=== PATIENT | female | born 1950 | race Caucasian/White ===

== ENCOUNTER → 2016-12-24 | Emergency (ER) | payer MEDICARE ==
[~2016-12-24] VITALS: Ht 152.4 cm; Wt 68.0 kg
[~2016-12-24] MED LIST: ACHD5005 PO; CIPR-225 PO; GLIM4TAB PO; INSU100I16 SQ; LEVO100T7 PO; LEVO750T9 PO; LEVO75TA6 PO; LISI10TA2 PO; MTF500T PO; NITR-65 PO; OMEP20CA12 PO; OXYC-12 PO; PANT40TA3 PO; PHEN-640 PO; PHENAZOPYRIDINE 100 MG (PYRIDIUM) TABLET PO ONE; PRAV40TA PO; PRD10T PO; RANI300T4 PO; RX-NITROFURANTOIN 100 MG (MACROBID) CAP PPK#2 PO STA; [UNRECOGNIZED DRUG - OTHER] PO; [UNRECOGNIZED DRUG - OTHER] PO
--- NOTE | 2016-12-24 04:32 | ED GU-Female ---
General Chief Complaint: -Female Stated Complaint: BLOOD WITH URINE Source: patient, spouse History of Present Illness Time seen by provider: 04:17 Initial Comments PT ARRIVES VIA POV FROM HOME C/O BLOOD IN URINE, LOWER ABDOMINAL PAIN/PRESSURE/CRAMPING, URGENCY, UNABLE TO URINATE SINCE 2300 THIS EVENING NO FEVER NO NAUSEA/VOMITING A COUPLE OF WEEKS AGO, SHE HAD "JUST ONE DROP" OF BLOOD IN HER URINE--DID NOT SEEK CARE AT THAT TIME HAS HAD THIS SAME PROBLEM ONCE BEFORE, ABOUT A YEAR AGO PCP: DR. LEO Allergies and Home Medications Allergies Coded Allergies: aspirin (Unverified Allergy, Mild, ITCHINESS, 09/30/15) Uncoded Allergies: PCN (Allergy, Intermediate, ITCHINESS, 09/30/15) Home Medications Glimepiride 4 Mg Tablet, 8 MG PO DAILY, (Reported) TAKES 2 (4MG) TABLETS Insulin Detemir 100 Unit/1 Ml Insuln.pen, 60 UNIT SQ HS, (Reported) Levothyroxine Sodium 100 Mcg Tablet, 100 MCG PO DAILY, (Reported) Lisinopril 10 Mg Tablet, 10 MG PO DAILY@0900, #30 Prescribed by: RAUL LEO on 04/21/16 0755 Metformin Hcl 500 Mg Tablet, 1,000 EACH PO BID WITH MEALS, (Reported) TAKES 2 (500MG) TABLETS Pantoprazole Sodium 40 Mg Tablet.dr, 40 MG PO DAILY, (Reported) Pravastatin Sodium 40 Mg Tablet, 40 MG PO HS, (Reported) Constitutional: no symptoms reported Respiratory: no symptoms reported Cardiovascular: no symptoms reported Gastrointestinal: see HPI, abdominal pain Genitourinary: see HPI, burning, dysuria, hematuria, pain, urgency Musculoskeletal: no symptoms reported Skin: no symptoms reported Psychiatric/Neurological: No Symptoms Reported Past Hgffzqi-Ygjkzj-Gjtgwu Hx Patient Social History Alcohol Use: Denies Use Recreational Drug Use: No Smoking Status: Never a Smoker Recent Foreign Travel: No Contact w/Someone Who Travel: No Recent Hopitalizations: No Immunizations Up To Date Tetanus Booster (TDap): Unknown Date of Influenza Vaccine: Mar 23, 2016 Seasonal Allergies Seasonal Allergies: No Surgeries HX Surgeries: Yes (VERICOSE VEINS, LEFT ROTATOR CUFF REPAIR, CATARACTS) Surgeries: Eye Surgery, Orthopedic, Vascular Surgery Respiratory Hx Respiratory Disorders: No Cardiovascular Hx Cardiac Disorders: No (VARICOSE VEINS) Neurological Hx Neurological Disorders: No Reproductive System Hx Reproductive Disorders: No Genitourinary Hx Genitourinary Disorders: Yes Genitourinary Disorders: Bladder Infection Gastrointestinal Hx Gastrointestinal Disorders: No Musculoskeletal Hx Musculoskeletal Disorders: No Endocrine Hx Endocrine Disorders: Yes Endocrine Disorders: Diabetes, Insulin dep HEENT HX ENT Disorders: No Cancer Hx Cancer: No Psychosocial Hx Psychiatric Problems: No Integumentary HX Skin/Integumentary Disorder: No Blood Transfusions Hx Blood Disorders: No Family Medical History Significant Family History: No Pertinent Family Hx Family Medial History: Patient reports no known family medical history. 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, no motor/sensory deficits, alert, oriented x 3 Skin: normal color, warm/dry Progress/Results/Core Measures Results/Orders Lab Results Laboratory Tests Test 12/24/16 04:10 Range/Units Urine Color RED H Urine Clarity BLOODY H Urine pH 6 5-9 Urine Specific [place] 1.015 L 1.016-1.022 Urine Protein 4+ NEGATIVE Urine Glucose (UA) NEGATIVE NEGATIVE Urine Ketones 1+ H NEGATIVE Urine Nitrite NEGATIVE NEGATIVE Urine Bilirubin NEGATIVE NEGATIVE Urine Urobilinogen NORMAL NORMAL MG/DL Urine Leukocyte Esterase 3+ H NEGATIVE Urine RBC (Auto) 4+ H NEGATIVE Urine RBC TNTC H /HPF Urine WBC TNTC H /HPF Urine Crystals NONE /LPF Urine Bacteria NEGATIVE /HPF Urine Casts NONE /LPF Urine Mucus NEGATIVE /LPF Urine Culture Indicated YES My Orders Orders - CRISTIAN FISCHER DO Ua Culture If Indicated (12/24/16 04:17) Urine Culture (12/24/16 04:27) Phenazopyridine Tablet (Pyridium Tablet) (12/24/16 04:30) Bladder Scan (12/24/16 04:32) Medications Given in ED Current Medications Medications Dose Ordered Sig/Nohelia Route Start Time Stop Time Status Last Admin Dose Admin Phenazopyridine HCl 200 mg ONCE ONCE PO 12/24/16 04:30 12/24/16 04:32 DC 12/24/16 04:54 200 MG Vital Signs/I&O Vital Sign - Last 12Hours 12/24/16 04:30 Temp 99.1 Pulse 100 Resp 20 B/P (MAP) 166/83 Pulse Ox 98 O2 Delivery Room Air Progress Note : Progress Note PT INITIALLY UNABLE TO VOID, IN/OUT CATH DONE--PT UNCOOPERATIVE, AND IT WAS DC' D BEFORE BLADDER WAS EMPTIED. GROSSLY BLOODY URINE PT GIVEN PYRIDIUM AND THEN WAS ABLE TO VOID ON HER OWN. POST VOID BLADDER SCAN SHOWS COMPLETE EMPTYING OF BLADDER. Departure Impression Impression: Primary Impression: Urinary tract infection Additional Impression: Acute hemorrhagic cystitis Disposition: HOME, SELF-CARE Condition: Improved Departure-Patient Inst. Referrals: RAUL LEO DO (PCP/Family) Primary Care Physician Patient Instructions: Blood in the Urine (Hematuria), Adult (DC), Urinary Tract Infection, Adult (DC) Add. Discharge Instructions: LOTS OF CLEAR LIQUIDS--NO COFFEE, POP OR TEA TYLENOL NEEDED FOR PAIN FOLLOW UP WITH DR. LEO IN 3-4 DAYS FOR FURTHER CARE All discharge instructions reviewed with patient and/or family. Voiced understanding. Scripts Phenazopyridine HCl (Pyridium) 200 Mg Tablet 1 TAB PO TID for BLADDER DISCOMFORT, #15 TAB Prov: CRISTIAN FISCHER DO 12/24/16 Nitrofurantoin Monohyd/M-Cryst (Macrobid 100 mg Capsule) 100 Mg Capsule 100 MG PO BID, #20 CAP Prov: CRISTIAN FISCHER DO 12/24/16 CRISTIAN FISCHER DO Dec 24, 2016 04:32
[2016-12-24 04:41] LABS: BILIRUBIN,URINE NEGATIVE (NEGATIVE); KETONES,URINE 1+ (NEGATIVE); LEUKOCYTE ESTERASE ,URINE 3+ (NEGATIVE); NITRITE,URINE NEGATIVE (NEGATIVE); PH,URINE 6 (5-9); PROTEIN,URINE 4+ (NEGATIVE); UROBILINOGEN,URINE NORMAL (NORMAL)
[2016-12-24 04:55] LABS: WBC,URINE TNTC /HPF
[2016-12-24 05:09] VITALS: BP 166/83
== END ==
LOC: EDUNIT# 04:06 → ER 04:09
DX: N39.0 Urinary tract infection, site not specified (principal); N30.90 Cystitis, unspecified without hematuria; E11.9 Type 2 diabetes mellitus without complications; Z79.84 Long term (current) use of oral hypoglycemic drugs; Z79.4 Long term (current) use of insulin
CPT/HCPCS: 51702; 81000; 87088; 87186

== ENCOUNTER → 2017-02-19 | Outpatient (CLI) | payer MEDICARE ==
[~2017-02-19] MED LIST changes: -PHENAZOPYRIDINE 100 MG (PYRIDIUM) TABLET PO ONE; -RX-NITROFURANTOIN 100 MG (MACROBID) CAP PPK#2 PO STA
== END ==
LOC: LAB 12:16
PROVIDERS: ATTEND Family Medicine
DX: N39.0 Urinary tract infection, site not specified (principal)
CPT/HCPCS: 87088

== ENCOUNTER 2017-06-29 23:20 | Emergency (ER) | payer MEDICARE ==
[~2017-06-29] VITALS: Ht 152.4 cm; Wt 68.2 kg
--- OUTSIDE RECORDS SUMMARY | 2017-06-29 23:27 | XMS REPORT | Continuity of Care Document ---
Author Author [facility] Organization [facility] Address Unknown Phone Unavailable Allergies Active Description Code Type Severity Reaction Onset Reported/Identified Relationship to Patient Clinical Status Yes NUTS NUTS Mild ITCHINESS 08/08/2013 Yes PCN PCN Mild ITCHINESS 08/08/2013 Yes PCN PCN Moderate ITCHINESS 09/30/2015 Yes aspirin [id number] Drug Allergy Mild ITCHINESS 09/30/2015 Medications There is no data. Problems Date Dx Coded Attending Type Code Diagnosis Diagnosed By 08/08/2013 AUBREY ALEMAN MD Ot 813.42 FX DISTAL RADIUS NEC-CL 08/08/2013 AUBREY ALEMAN MD Ot 959.4 HAND INJURY NOS 08/08/2013 AUBREY ALEMAN MD Ot E000.8 OTHER EXTERNAL CAUSE STATUS 08/08/2013 AUBREY ALEMAN MD Ot E849.[address] NEC 08/08/2013 AUBREY ALEMAN MD Ot E885.9 FALL FROM SLIPPING, TRIPPING, OR STUMBLI 12/04/2013 JOVAN ELLIS MD Ot 719.58 JT STIFFNESS NEC-OTH JT 12/04/2013 JOVAN ELLIS MD Ot V54.89 OTHER ORTHOPEDIC AFTERCARE 12/04/2013 JOVAN ELLIS MD Ot V57.21 ENCOUNTER FOR OCCUPATIONAL THERAPY 09/30/2015 CHERIE RAO MD Ot K21.9 GASTRO-ESOPHAGEAL REFLUX DISEASE WITHOUT 09/30/2015 CHERIE RAO MD Ot K59.00 CONSTIPATION, UNSPECIFIED 09/30/2015 CHERIE RAO MD Ot Z01.818 ENCOUNTER FOR OTHER PREPROCEDURAL EXAMIN 10/01/2015 CHERIE RAO MD Ot K21.9 10/01/2015 CHERIE RAO MD Ot K59.00 10/01/2015 CHERIE RAO MD, Ot Z01.818 10/01/2015 CHERIE RAO MD Ot K21.9 10/01/2015 JALEN OCHOA, CHERIE Marion Ot K59.00 10/01/2015 JALEN OCHOA, CHERIE Marion Ot Z01.818 10/04/2015 JALEN OCHOA, CHERIE Marion Ot E11.9 TYPE 2 DIABETES MELLITUS WITHOUT COMPLIC 10/04/2015 JALEN OCHOA, CHERIE Doni Ot K26.9 DUODENAL ULCER, UNSP ACUTE OR CHRONIC 10/04/2015 JALEN OCHOA, CHERIE Marion Ot K44.9 DIAPHRAGMATIC HERNIA WITHOUT OBSTRUCTION 10/04/2015 JALEN OCHOA, CHERIE M Ot K57.90 DVRTCLOS OF INTEST, PART UNSP, W/O PERF 10/14/2015 JALEN OCHOA, CHERIE Marion Ot E11.9 10/14/2015 JALEN OCHOA, CHERIE M Ot K26.9 10/14/2015 JALEN OCHOA, CHERIE Marion Ot K44.9 10/14/2015 JALEN OCHOA, CHERIE M Ot K57.90 12/02/2015 Ot 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 12/02/2015 Ot E000.8 OTHER EXTERNAL CAUSE STATUS 12/02/2015 Ot E888.9 FALL NOS 12/02/2015 RAUL LEO DO Ot 813.42 FX DISTAL RADIUS NEC-CL 12/02/2015 FELIPA ENGLISH RAUL Israel Ot E000.8 OTHER EXTERNAL CAUSE STATUS 12/02/2015 RAUL LEO DO Ot E849.0 ACCIDENT IN HOME 12/02/2015 RAUL LEO DO Ot E885.9 FALL FROM SLIPPING, TRIPPING, OR STUMBLI 12/02/2015 SLOAN SILVA APRN Ot K76.0 FATTY (CHANGE OF) LIVER, NOT ELSEWHERE C 12/02/2015 SLOAN SILVA APRN Ot N20.0 CALCULUS OF KIDNEY 12/02/2015 SLOAN SILVA APRN Ot R31.0 GROSS HEMATURIA 12/03/2015 SLOAN SILVA APRN Ot K76.0 FATTY (CHANGE OF) LIVER, NOT ELSEWHERE C 12/03/2015 SLOAN SILVA APRN Ot N20.0 CALCULUS OF KIDNEY 12/03/2015 SLOAN SILVA APRN Ot R31.0 GROSS HEMATURIA 04/21/2016 CHUCKIEROMEORAUL Ot E11.65 TYPE 2 DIABETES MELLITUS WITH HYPERGLYCE 04/21/2016 FELIPA ENGLISH, RAUL Israel Ot E87.1 HYPO-OSMOLALITY AND HYPONATREMIA 04/21/2016 FELIPA ENGLISH, RAUL Israel Ot I10 ESSENTIAL (PRIMARY) HYPERTENSION 04/21/2016 FELIPA ENGLISH, RAUL Israel Ot N28.9 DISORDER OF KIDNEY AND URETER, UNSPECIFI 04/21/2016 RAUL LEO DO Ot R45.89 OTHER SYMPTOMS AND SIGNS INVOLVING EMOTI 05/22/2016 Ot 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 05/22/2016 Ot E000.8 OTHER EXTERNAL CAUSE STATUS 05/22/2016 Ot E888.9 FALL NOS 05/22/2016 FELIPA ENGLISH, RAUL Israel Ot 813.42 FX DISTAL RADIUS NEC-CL 05/22/2016 FELIPA ENGLISH, RAUL Israel Ot E000.8 OTHER EXTERNAL CAUSE STATUS 05/22/2016 FELIPA ENGLISH, RAUL Israel Ot E849.0 ACCIDENT IN HOME 05/22/2016 RAUL LEO DO Ot E885.9 FALL FROM SLIPPING, TRIPPING, OR STUMBLI 05/24/2016 FELIPA ENGLISH, RAUL Israel Ot R22.2 LOCALIZED SWELLING, MASS AND LUMP, TRUNK 05/24/2016 FELIPA ENGLISH, RAUL Israel Ot R22.2 LOCALIZED SWELLING, MASS AND LUMP, TRUNK 06/13/2016 FELIPA ENGLISH, RAUL Israel Ot R22.2 LOCALIZED SWELLING, MASS AND LUMP, TRUNK 12/24/2016 AALIYAH DO CRISTIAN K Ot E11.9 TYPE 2 DIABETES MELLITUS WITHOUT COMPLIC 12/24/2016 AALIYAH DO CRISTIAN K Ot N30.90 CYSTITIS, UNSPECIFIED WITHOUT HEMATURIA 12/24/2016 AALIYAH DO CRISTIAN K Ot N39.0 URINARY TRACT INFECTION, SITE NOT SPECIF 12/24/2016 AALIYAH DO CRISTIAN K Ot R35.0 FREQUENCY OF MICTURITION 12/24/2016 AALIYAH DO CRISTIAN K Ot Z79.4 MANAGER SERVICING (CURRENT) USE OF INSULIN 12/24/2016 AALIYAH DO CRISTIAN K Ot Z79.84 PENITENTIARY (CURRENT) USE OF ORAL HYPOGLYC 03/14/2017 FELIPA ENGLISHRAUL Ot N39.0 URINARY TRACT INFECTION, SITE NOT SPECIF Procedures There is no data. Results Test Result Range Complete blood count (CBC) with automated white blood cell (WBC) differential - 04/19/16 17:02 Blood leukocytes automated count (number/volume) 6.1 10*3/uL 4.3-11.0 Blood erythrocytes automated count (number/volume) 4.32 10*6/uL 4.35-5.85 Venous blood hemoglobin measurement (mass/volume) 12.6 g/dL 11.5-16.0 Blood hematocrit (volume fraction) 36 % 35-52 Automated erythrocyte mean corpuscular volume 84 [foz_us] 80-99 Automated erythrocyte mean corpuscular hemoglobin (mass per erythrocyte) 29 pg 25-34 Automated erythrocyte mean corpuscular hemoglobin concentration measurement ( mass/volume) 35 g/dL 32-36 Automated erythrocyte distribution width ratio 12.6 % 10.0-14.5 Automated blood platelet count (count/volume) 254 10*3/uL 130-400 Automated blood platelet mean volume measurement 11.1 [foz_us] 7.4-10.4 Automated blood neutrophils/100 leukocytes 53 % 42-75 Automated blood lymphocytes/100 leukocytes 37 % 12-44 Blood monocytes/100 leukocytes 8 % 0-12 Automated blood eosinophils/100 leukocytes 2 % 0-10 Automated blood basophils/100 leukocytes 0 % 0-10 Blood neutrophils automated count (number/volume) 3.2 10*3 1.8-7.8 Blood lymphocytes automated count (number/volume) 2.2 10*3 1.0-4.0 Blood monocytes automated count (number/volume) 0.5 10*3 0.0-1.0 Automated eosinophil count 0.1 10*3/uL 0.0-0.3 Automated blood basophil count (count/volume) 0.0 10*3/uL 0.0-0.1 Comprehensive metabolic panel - 04/19/16 17:02 Serum or plasma sodium measurement (moles/volume) 130 mmol/L 135-145 Serum or plasma potassium measurement (moles/volume) 4.9 mmol/L 3.6-5.0 Serum or plasma chloride measurement (moles/volume) 99 mmol/L 98-107 Carbon dioxide 19 mmol/L 21-32 Serum or plasma anion gap determination (moles/volume) 12 mmol/L 5-14 Serum or plasma urea nitrogen measurement (mass/volume) 28 mg/dL 7-18 Serum or plasma creatinine measurement (mass/volume) 1.37 mg/dL 0.60-1.30 Serum or plasma urea nitrogen/creatinine mass ratio 20 NRG Serum or plasma creatinine measurement with calculation of estimated glomerular filtration rate 39 NRG Serum or plasma glucose measurement (mass/volume) 566 mg/dL 70-105 Serum or plasma calcium measurement (mass/volume) 9.2 mg/dL 8.5-10.1 Serum or plasma total bilirubin measurement (mass/volume) 0.3 mg/dL 0.1-1.0 Serum or plasma alkaline phosphatase measurement (enzymatic activity/volume) 155 U/L 40-136 Serum or plasma aspartate aminotransferase measurement (enzymatic activity/ volume) 23 U/L 5-34 Serum or plasma alanine aminotransferase measurement (enzymatic activity/volume ) 35 U/L 0-55 Serum or plasma protein measurement (mass/volume) 7.0 g/dL 6.4-8.2 Serum or plasma albumin measurement (mass/volume) 4.1 g/dL 3.2-4.5 Serum or plasma salicylates measurement (mass/volume) - 04/19/16 17:02 Serum or plasma salicylates measurement (mass/volume) < mg/dL 5.0-20.0 Serum or plasma acetaminophen measurement (mass/volume) - 04/19/16 17:02 Serum or plasma acetaminophen measurement (mass/volume) < ug/mL 10-30 Serum or plasma ethanol measurement (mass/volume) - 04/19/16 17:02 Serum or plasma ethanol measurement (mass/volume) < mg/dL <10 Serum or plasma thyrotropin measurement by detection limit <=0.05 miu/l (units/ volume) - 04/19/16 17:02 Serum or plasma thyrotropin measurement by detection limit <=0.05 miu/l (units/ volume) 1.80 u[iU]/mL 0.35-4.94 Magnesium - 04/19/16 17:02 Magnesium 2.1 mg/dL 1.8-2.4 Serum or plasma troponin i.cardiac measurement (mass/volume) - 04/19/16 17:02 Serum or plasma troponin i.cardiac measurement (mass/volume) < ng/ mL <0.30 Fibrin D-dimer FEU measurement in platelet poor plasma (mass/volume) - 17:02 Fibrin D-dimer FEU measurement in platelet poor plasma (mass/volume) < ug/mL 0.00-0.49 Complete urinalysis with reflex to culture - 04/19/16 17:40 Urine color determination YELLOW NRG Urine clarity determination CLEAR NRG Urine pH measurement by test strip 6.5 5-9 Specific gravity of urine by test strip 1.005 1.016- 1.022 Urine protein assay by test strip, semi-quantitative 1+ NEGATIVE Urine glucose detection by automated test strip 4+ NEGATIVE Erythrocytes detection in urine sediment by light microscopy NEGATIVE NEGATIVE Urine ketones detection by automated test strip NEGATIVE NEGATIVE Urine nitrite detection by test strip NEGATIVE NEGATIVE Urine total bilirubin detection by test strip NEGATIVE NEGATIVE Urine urobilinogen measurement by automated test strip (mass/volume) NORMAL NORMAL Urine leukocyte esterase detection by dipstick NEGATIVE NEGATIVE Automated urine sediment erythrocyte count by microscopy (number/high power field) RARE NRG Automated urine sediment leukocyte count by microscopy (number/high power field ) NONE NRG Bacteria detection in urine sediment by light microscopy NONE NRG Squamous epithelial cells detection in urine sediment by light microscopy 0-2 NRG Crystals detection in urine sediment by light microscopy NONE NRG Casts detection in urine sediment by light microscopy NONE NRG Mucus detection in urine sediment by light microscopy NONE NRG Complete urinalysis with reflex to culture NO NRG Urine drug screening test - 04/19/16 17:40 Urine phencyclidine detection by screening method NEGATIVE NEGATIVE Urine benzodiazepines detection by screening method NEGATIVE NEGATIVE Urine cocaine detection NEGATIVE NEGATIVE Urine amphetamines detection by screening method NEGATIVE NEGATIVE Urine methamphetamine detection by screening method NEGATIVE NEGATIVE Urine cannabinoids detection by screening method NEGATIVE NEGATIVE Urine opiates detection by screening method NEGATIVE NEGATIVE Urine barbiturates detection NEGATIVE NEGATIVE Screening urine tricyclic antidepressants detection NEGATIVE NEGATIVE Urine methadone detection by screening method NEGATIVE NEGATIVE Urine oxycodone detection NEGATIVE NEGATIVE Urine propoxyphene detection NEGATIVE NEGATIVE Urine buprenophrine screen NEGATIVE NEGATIVE Capillary blood glucose measurement by glucometer (mass/volume) - 04/19/16 18: 44 Capillary blood glucose measurement by glucometer (mass/volume) 359 mg/dL 70-110 Capillary blood glucose measurement by glucometer (mass/volume) - 04/19/16 21: 26 Capillary blood glucose measurement by glucometer (mass/volume) 258 mg/dL 70-110 Complete blood count (CBC) with automated white blood cell (WBC) differential - 04/20/16 05:25 Blood leukocytes automated count (number/volume) 6.2 10*3/uL 4.3-11.0 Blood erythrocytes automated count (number/volume) 4.12 10*6/uL 4.35-5.85 Venous blood hemoglobin measurement (mass/volume) 12.0 g/dL 11.5-16.0 Blood hematocrit (volume fraction) 35 % 35-52 Automated erythrocyte mean corpuscular volume 84 [foz_us] 80-99 Automated erythrocyte mean corpuscular hemoglobin (mass per erythrocyte) 29 pg 25-34 Automated erythrocyte mean corpuscular hemoglobin concentration measurement ( mass/volume) 35 g/dL 32-36 Automated erythrocyte distribution width ratio 12.9 % 10.0-14.5 Automated blood platelet count (count/volume) 222 10*3/uL 130-400 Automated blood platelet mean volume measurement 10.7 [foz_us] 7.4-10.4 Automated blood neutrophils/100 leukocytes 45 % 42-75 Automated blood lymphocytes/100 leukocytes 44 % 12-44 Blood monocytes/100 leukocytes 9 % 0-12 Automated blood eosinophils/100 leukocytes 2 % 0-10 Automated blood basophils/100 leukocytes 1 % 0-10 Blood neutrophils automated count (number/volume) 2.8 10*3 1.8-7.8 Blood lymphocytes automated count (number/volume) 2.7 10*3 1.0-4.0 Blood monocytes automated count (number/volume) 0.6 10*3 0.0-1.0 Automated eosinophil count 0.1 10*3/uL 0.0-0.3 Automated blood basophil count (count/volume) 0.0 10*3/uL 0.0-0.1 Comprehensive metabolic panel - 04/20/16 05:47 Serum or plasma sodium measurement (moles/volume) 137 mmol/L 135-145 Serum or plasma potassium measurement (moles/volume) 3.9 mmol/L 3.6-5.0 Serum or plasma chloride measurement (moles/volume) 106 mmol/L 98-107 Carbon dioxide 22 mmol/L 21-32 Serum or plasma anion gap determination (moles/volume) 9 mmol/L 5-14 Serum or plasma urea nitrogen measurement (mass/volume) 23 mg/dL 7-18 Serum or plasma creatinine measurement (mass/volume) 1.10 mg/dL 0.60-1.30 Serum or plasma urea nitrogen/creatinine mass ratio 21 NRG Serum or plasma creatinine measurement with calculation of estimated glomerular filtration rate 50 NRG Serum or plasma glucose measurement (mass/volume) 311 mg/dL 70-105 Serum or plasma calcium measurement (mass/volume) 8.9 mg/dL 8.5-10.1 Serum or plasma total bilirubin measurement (mass/volume) 0.3 mg/dL 0.1-1.0 Serum or plasma alkaline phosphatase measurement (enzymatic activity/volume) 126 U/L 40-136 Serum or plasma aspartate aminotransferase measurement (enzymatic activity/ volume) 24 U/L 5-34 Serum or plasma alanine aminotransferase measurement (enzymatic activity/volume ) 33 U/L 0-55 Serum or plasma protein measurement (mass/volume) 6.5 g/dL 6.4-8.2 Serum or plasma albumin measurement (mass/volume) 3.9 g/dL 3.2-4.5 Capillary blood glucose measurement by glucometer (mass/volume) - 04/20/16 10: 27 Capillary blood glucose measurement by glucometer (mass/volume) 278 mg/dL 70-110 Capillary blood glucose measurement by glucometer (mass/volume) - 04/20/16 16: 10 Capillary blood glucose measurement by glucometer (mass/volume) 312 mg/dL 70-110 Capillary blood glucose measurement by glucometer (mass/volume) - 04/20/16 20: 25 Capillary blood glucose measurement by glucometer (mass/volume) 392 mg/dL 70-110 Automated blood complete blood count (hemogram) panel - 04/21/16 05:45 Blood leukocytes automated count (number/volume) 6.1 10*3/uL 4.3-11.0 Blood erythrocytes automated count (number/volume) 3.95 10*6/uL 4.35-5.85 Venous blood hemoglobin measurement (mass/volume) 11.6 g/dL 11.5-16.0 Blood hematocrit (volume fraction) 33 % 35-52 Automated erythrocyte mean corpuscular volume 84 [foz_us] 80-99 Automated erythrocyte mean corpuscular hemoglobin (mass per erythrocyte) 29 pg 25-34 Automated erythrocyte mean corpuscular hemoglobin concentration measurement ( mass/volume) 35 g/dL 32-36 Automated erythrocyte distribution width ratio 12.7 % 10.0-14.5 Automated blood platelet count (count/volume) 252 10*3/uL 130-400 Automated blood platelet mean volume measurement 10.9 [foz_us] 7.4-10.4 Comprehensive metabolic panel - 04/21/16 05:45 Serum or plasma sodium measurement (moles/volume) 137 mmol/L 135-145 Serum or plasma potassium measurement (moles/volume) 3.9 mmol/L 3.6-5.0 Serum or plasma chloride measurement (moles/volume) 106 mmol/L 98-107 Carbon dioxide 22 mmol/L 21-32 Serum or plasma anion gap determination (moles/volume) 9 mmol/L 5-14 Serum or plasma urea nitrogen measurement (mass/volume) 21 mg/dL 7-18 Serum or plasma creatinine measurement (mass/volume) 1.14 mg/dL 0.60-1.30 Serum or plasma urea nitrogen/creatinine mass ratio 18 NRG Serum or plasma creatinine measurement with calculation of estimated glomerular filtration rate 48 NRG Serum or plasma glucose measurement (mass/volume) 271 mg/dL 70-105 Serum or plasma calcium measurement (mass/volume) 9.3 mg/dL 8.5-10.1 Serum or plasma total bilirubin measurement (mass/volume) 0.2 mg/dL 0.1-1.0 Serum or plasma alkaline phosphatase measurement (enzymatic activity/volume) 124 U/L 40-136 Serum or plasma aspartate aminotransferase measurement (enzymatic activity/ volume) 26 U/L 5-34 Serum or plasma alanine aminotransferase measurement (enzymatic activity/volume ) 33 U/L 0-55 Serum or plasma protein measurement (mass/volume) 6.4 g/dL 6.4-8.2 Serum or plasma albumin measurement (mass/volume) 3.7 g/dL 3.2-4.5 Hemoglobin A1c - 04/21/16 05:45 Hemoglobin A1c 11.5 % 4.5-6.2 Capillary blood glucose measurement by glucometer (mass/volume) - 04/21/16 11: 40 Capillary blood glucose measurement by glucometer (mass/volume) 374 mg/dL 70-110 Complete urinalysis with reflex to culture - 12/24/16 04:10 Urine color determination RED NRG Urine clarity determination BLOODY NRG Urine pH measurement by test strip 6 5-9 Specific gravity of urine by test strip 1.015 1.016- 1.022 Urine protein assay by test strip, semi-quantitative 4+ NEGATIVE Urine glucose detection by automated test strip NEGATIVE NEGATIVE Erythrocytes detection in urine sediment by light microscopy 4+ NEGATIVE Urine ketones detection by automated test strip 1+ NEGATIVE Urine nitrite detection by test strip NEGATIVE NEGATIVE Urine total bilirubin detection by test strip NEGATIVE NEGATIVE Urine urobilinogen measurement by automated test strip (mass/volume) NORMAL NORMAL Urine leukocyte esterase detection by dipstick 3+ NEGATIVE Automated urine sediment erythrocyte count by microscopy (number/high power field) TNTC NRG Automated urine sediment leukocyte count by microscopy (number/high power field ) TNTC NRG Bacteria detection in urine sediment by light microscopy NEGATIVE NRG Crystals detection in urine sediment by light microscopy NONE NRG Casts detection in urine sediment by light microscopy NONE NRG Mucus detection in urine sediment by light microscopy NEGATIVE NRG Complete urinalysis with reflex to culture YES NRG Bacterial urine culture - 12/24/16 04:10 Bacterial urine culture [id number] NRG COLONY COUNT >100,000/ML NRG FTX;REPORTABLE SENSITIVITY REPORTED 12/25 15:30 NR Bacterial susceptibility panel - 12/24/16 04:10 Gentamicin susceptibility test by minimum inhibitory concentration < = NRG Trimethoprim/sulfamethoxazole susceptibility test by minimum inhibitoryconcentration <= NRG Ampicillin susceptibility test by minimum inhibitory concentration > = NRG Tobramycin susceptibility test by minimum inhibitory concentration < = NRG Cefazolin susceptibility test by minimum inhibitory concentration < = NRG Ceftriaxone susceptibility test by minimum inhibitory concentration <= NRG Ampicillin/sulbactam susceptibility test by minimum inhibitory concentration 16 NRG Piperacillin/tazobactam susceptibility test by minimum inhibitory concentration <= NRG Ciprofloxacin susceptibility test by minimum inhibitory concentration <= NRG Meropenem susceptibility test by minimum inhibitory concentration < = NRG Nitrofurantoin susceptibility test by minimum inhibitory concentration <= NRG Aztreonam susceptibility test by minimum inhibitory concentration < = NRG Extended spectrum beta lactamase (ESBL) producing bacteria susceptibility test by minimum inhibitory concentration - NR Bacterial urine culture - 02/19/17 12:45 URINE CULTURE RESULTS MORE THAN 3 ISOLATES NRG Encounters ACCT No. Visit Date/Time Discharge Status Pt. Type Provider Facility Loc./Unit Complaint [id number] 02/19/2017 12:16:00 02/19/2017 23:59:59 CLS Outpatient RAUL LEO DO [facility] LAB URINE CULTURE [id number] 12/24/2016 04:09:00 12/24/2016 05:09:00 DIS Emergency CRISTIAN FISCHER DO [facility] ER BLOOD WITH URINE [id number] 05/22/2016 13:23:00 05/22/2016 23:59:59 CLS Outpatient RAUL LEO DO [facility] RAD LOCALIZED SWELLING, MASS AND LUMP,TRUNK [id number] 04/19/2016 21:00:00 04/21/2016 13:40:00 DIS Inpatient RAUL LEO DO [facility] 4TH HYPERGLYCEMIA, HYPERTENSION,HYPONATREMIA,WEAKNESS,S [id number] 12/02/2015 10:13:00 12/02/2015 13:10:00 DIS Emergency SLOAN SILVA APRN [facility] ER VAG BLEEDING [id number] 10/04/2015 09:19:00 10/04/2015 12:25:00 DIS Outpatient CHERIE RAO MD [facility] CHANGE IN BOWEL HABITS; GERD [id number] 09/30/2015 06:09:00 09/30/2015 13:44:00 DIS Outpatient CHERIE RAO MD [facility] PREOP CHANGE IN BOWEL HABITS; GERD [id number] 11/19/2013 13:37:00 12/04/2013 11:05:00 DIS Outpatient JOVAN ELLIS MD [facility] REHAB S/P LEFT WRIST FX [id number] 09/23/2013 14:01:00 09/23/2013 23:59:59 CLS Outpatient [id number] 09/02/2013 14:02:00 09/02/2013 23:59:59 CLS Outpatient [id number] 08/08/2013 14:45:00 08/08/2013 23:59:59 CLS Outpatient RAUL LEO DO [facility] RAD FELL ON ICE ON LEFT WRIST [id number] 08/08/2013 15:28:00 08/08/2013 17:16:00 DIS Emergency AUBREY ALEMAN MD [facility] ER L HAND INJ [id number] 10/03/2011 15:01:00 Document Registration
[2017-06-30] MEDS ORDERED: HYOSCYAMINE 0.125 MG (LEVSIN) TAB SL ONE
[2017-06-30 00:16] LABS: BASOPHILS % (AUTO) 0 % (0-10); EOSINOPHILS # (AUTO) 0.1 10^3/uL (0.0-0.3); EOSINOPHILS % (AUTO) 2 % (0-10); LYMPHOCYTES # (AUTO) 3.2 X 10^3 (1.0-4.0); LYMPHOCYTES % (AUTO) 38 % (12-44); MEAN CORPUSCULAR HEMOGLOBIN 30 PG (25-34); MEAN CORPUSCULAR HGB CONC 34 G/DL (32-36); MEAN CORPUSCULAR VOLUME 86 FL (80-99); MEAN PLATELET VOLUME 10.3 FL (7.4-10.4); MONOCYTES # (AUTO) 0.6 X 10^3 (0.0-1.0); MONOCYTES % (AUTO) 7 % (0-12); NEUTROPHILS # (AUTO) 4.6 X 10^3 (1.8-7.8); NEUTROPHILS % (AUTO) 53 % (42-75); PLATELET COUNT 322 10^3/uL (130-400); WHITE BLOOD COUNT 8.6 10^3/uL (4.3-11.0)
[2017-06-30 00:36] LABS: BILIRUBIN,URINE NEGATIVE (NEGATIVE); KETONES,URINE 1+ (NEGATIVE); LEUKOCYTE ESTERASE ,URINE 2+ (NEGATIVE); NITRITE,URINE NEGATIVE (NEGATIVE); PH,URINE 7 (5-9); PROTEIN,URINE 4+ (NEGATIVE); UROBILINOGEN,URINE NORMAL (NORMAL)
[2017-06-30 00:37] LABS: ALBUMIN 4.2 GM/DL (3.2-4.5); BILIRUBIN,TOTAL 0.2 MG/DL (0.1-1.0); CALCIUM 9.3 MG/DL (8.5-10.1); CREATININE SERUM 1.33 MG/DL (0.60-1.30); POTASSIUM 4.1 MMOL/L (3.6-5.0); TOTAL PROTEIN 7.8 GM/DL (6.4-8.2)
[2017-06-30 00:45] LABS: SQUAMOUS EPITHELIAL CELL,UR RARE /HPF
[2017-06-30] MEDS ORDERED: PHENAZOPYRIDINE 100 MG (PYRIDIUM) TABLET PO ONE (01:00)
[2017-06-30] MEDS ORDERED: CIPROFLOXACIN 500 MG (CIPRO) TABLET PO SCH (01:00)
[2017-06-30] MEDS ORDERED: PHEN-640 PO (01:02)
[2017-06-30] MEDS ORDERED: CIPR-225 PO (01:02)
--- NOTE | 2017-06-30 01:02 | ED GU-Female ---
General Chief Complaint: -Female Stated Complaint: VAG BLEEDING Nursing Triage Note: PAINFUL URINATION WITH INCREASED FREQUENCY, POSSIBLE VAGINAL BLEEDING Nursing Sepsis Screen: No Definite Risk Source: patient, family, old records Exam Limitations: no limitations History of Present Illness Time seen by provider: 23:25 Initial Comments This 66-year-old woman presents to the emergency room with complaints of vaginal or urethral bleeding that started about 2 hours prior to arrival. She has significant pain with urination which she describes as a clawing or scratching pain. She also has urinary frequency. She recently completed a round of azithromycin and Phenergan with codeine as prescribed by Dr. Leo on Sunday for respiratory symptoms. She is a diabetic but denies any other significant health problems. Patient also has cramping suprapubic pain. Her who is hypervigilant also presents tissue with blood on it as an example of the bleeding noted. Review of her chart notes a CT scan performed in November 2015 showing left nephrolithiasis. Patient is rather uncomfortable on assessment. Patient describes the pain is coming from the vaginal area. She is uncertain if she has bleeding from the urethra or the vagina. She denies any sexual activity for 25 years. Allergies and Home Medications Allergies Coded Allergies: aspirin (Unverified Allergy, Mild, ITCHINESS, 09/30/15) Uncoded Allergies: PCN (Allergy, Intermediate, ITCHINESS, 09/30/15) Home Medications Ciprofloxacin HCl 500 Mg Tablet, 500 MG PO BID, #14 Prescribed by: RAYNA DEAN on 06/30/17 0102 Glimepiride 4 Mg Tablet, 8 MG PO DAILY, (Reported) TAKES 2 (4MG) TABLETS Insulin Detemir 100 Unit/1 Ml Insuln.pen, 60 UNIT SQ HS, (Reported) Levothyroxine Sodium 100 Mcg Tablet, 100 MCG PO DAILY, (Reported) Lisinopril 10 Mg Tablet, 10 MG PO DAILY@0900, #30 Prescribed by: RAUL LEO on 04/21/16 0755 Metformin Hcl 500 Mg Tablet, 1,000 EACH PO BID WITH MEALS, (Reported) TAKES 2 (500MG) TABLETS Pantoprazole Sodium 40 Mg Tablet.dr, 40 MG PO DAILY, (Reported) Phenazopyridine HCl 200 Mg Tablet, 1 TAB PO TID PRN for PAIN-MODERATE TO SEVERE , #10 Prescribed by: RAYNA DEAN on 06/30/17 0102 Pravastatin Sodium 40 Mg Tablet, 40 MG PO HS, (Reported) Constitutional: no symptoms reported EENTM: no symptoms reported Respiratory: no symptoms reported Cardiovascular: no symptoms reported Gastrointestinal: no symptoms reported Genitourinary: see HPI : No Musculoskeletal: no symptoms reported Skin: no symptoms reported Psychiatric/Neurological: No Symptoms Reported Endocrine: No Symptoms Reported Hematologic/Lymphatic: No Symptoms Reported Past Bavdhdq-Femjgn-Mjqteg Hx Patient Social History Alcohol Use: Denies Use Recreational Drug Use: No Smoking Status: Never a Smoker 2nd Hand Smoke Exposure: No Recent Foreign Travel: No Contact w/Someone Who Travel: No Recent Infectious Disease Expo: No Recent Hopitalizations: No Immunizations Up To Date Tetanus Booster (TDap): Unknown Date of Influenza Vaccine: Mar 23, 2016 Seasonal Allergies Seasonal Allergies: No Surgeries History of Surgeries: Yes (VERICOSE VEINS, LEFT ROTATOR CUFF REPAIR, CATARACTS) Surgeries: Eye Surgery, Orthopedic, Vascular Surgery Respiratory History of Respiratory Disorde: No Cardiovascular History of Cardiac Disorders: No (VARICOSE VEINS) Neurological History of Neurological Disord: No Reproductive System : No Hx Reproductive Disorders: No 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 Genitourinary History of Genitourinary Disor: Yes Genitourinary Disorders: Bladder Infection, Kidney Stones, UTI-Chronic Gastrointestinal History of Gastrointestinal Di: Yes Gastrointestinal Disorders: Gastroesophageal Reflux, Gastrointestinal Bleed, Ulcer Musculoskeletal History of Musculoskeletal Dis: No Endocrine History of Endocrine Disorders: Yes Endocrine Disorders: Diabetes, Insulin dep HEENT History of HEENT Disorders: Yes HEENT Disorders: Cataract Cancer History of Cancer: No Psychosocial History of Psychiatric Problem: No Integumentary History of Skin or Integumenta: No Blood Transfusions History of Blood Disorders: No Family Medical History Significant Family History: No Pertinent Family Hx Family Medial History: Patient reports no known family medical history. 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-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 nml as tested, no motor/sensory deficits, alert, normal mood/affect, oriented x 3 Skin: normal color, warm/dry Progress/Results/Core Measures Suspected Sepsis Recent Fever Within 48 Hours: No Infection Criteria Present: None New/Unexplained Altered Menta: No Sepsis Screen: No Definite Risk Sepsis Diagnosis: SIRS Temperature:97.3 Pulse: 93 Respiratory Rate: 16 Laboratory Tests 06/30/17 00:10: White Blood Count 8.6 Blood Pressure 182 /86 Mean: 118 Laboratory Tests 06/30/17 00:10: Creatinine 1.33H, Platelet Count 322, Total Bilirubin 0.2 Results/Orders Lab Results Laboratory Tests Test 06/29/17 23:47 06/30/17 00:10 Range/Units Urine Color RED H Urine Clarity VERY CLOUDY H Urine pH 7 5-9 Urine Specific [place] 1.010 L 1.016-1.022 Urine Protein 4+ NEGATIVE Urine Glucose (UA) 4+ H NEGATIVE Urine Ketones 1+ H NEGATIVE Urine Nitrite NEGATIVE NEGATIVE Urine Bilirubin NEGATIVE NEGATIVE Urine Urobilinogen NORMAL NORMAL MG/DL Urine Leukocyte Esterase 2+ H NEGATIVE Urine RBC (Auto) 5+ H NEGATIVE Urine RBC TNTC H /HPF Urine WBC 10-25 H /HPF Urine Squamous Epithelial Cells RARE /HPF Urine Crystals NONE /LPF Urine Bacteria TRACE /HPF Urine Casts NONE /LPF Urine Mucus NEGATIVE /LPF Urine Culture Indicated YES White Blood Count 8.6 4.3-11.0 10^3/uL Red Blood Count 4.10 L 4.35-5.85 10^6/uL Hemoglobin 12.1 11.5-16.0 G/DL Hematocrit 35 35-52 % Mean Corpuscular Volume 86 80-99 FL Mean Corpuscular Hemoglobin 30 25-34 PG Mean Corpuscular Hemoglobin Concent 34 32-36 G/DL Red Cell Distribution Width 13.0 10.0-14.5 % Platelet Count 322 130-400 10^3/uL Mean Platelet Volume 10.3 7.4-10.4 FL Neutrophils (%) (Auto) 53 42-75 % Lymphocytes (%) (Auto) 38 12-44 % Monocytes (%) (Auto) 7 0-12 % Eosinophils (%) (Auto) 2 0-10 % Basophils (%) (Auto) 0 0-10 % Neutrophils # (Auto) 4.6 1.8-7.8 X 10^3 Lymphocytes # (Auto) 3.2 1.0-4.0 X 10^3 Monocytes # (Auto) 0.6 0.0-1.0 X 10^3 Eosinophils # (Auto) 0.1 0.0-0.3 10^3/uL Basophils # (Auto) 0.0 0.0-0.1 10^3/uL Sodium Level 137 135-145 MMOL/L Potassium Level 4.1 3.6-5.0 MMOL/L Chloride Level 101 98-107 MMOL/L Carbon Dioxide Level 19 L 21-32 MMOL/L Anion Gap 17 H 5-14 MMOL/L Blood Urea Nitrogen 18 7-18 MG/DL Creatinine 1.33 H 0.60-1.30 MG/DL Estimat Glomerular Filtration Rate 40 BUN/Creatinine Ratio 14 Glucose Level 367 H 70-105 MG/DL Calcium Level 9.3 8.5-10.1 MG/DL Total Bilirubin 0.2 0.1-1.0 MG/DL Aspartate Amino Transf (AST/SGOT) 29 5-34 U/L Alanine Aminotransferase (ALT/SGPT) 36 0-55 U/L Alkaline Phosphatase 185 H 40-136 U/L Total Protein 7.8 6.4-8.2 GM/DL Albumin 4.2 3.2-4.5 GM/DL My Orders Orders - RAYNA ALCANTARA MD Cbc With Automated Diff (06/29/17 23:56) Comprehensive Metabolic Panel (06/29/17 23:56) Ua Culture If Indicated (06/29/17 23:56) Saline Lock/Iv-Start (06/29/17 23:56) Hyoscyamine Sl Tablet (Levsin Sl Tablet) (06/30/17 00:00) Ct Abd/Pelvis Wo(Kidney Stone) (06/30/17 00:01) Urine Culture (06/29/17 23:47) Ciprofloxacin Tablet (Cipro Tablet) (06/30/17 01:00) Phenazopyridine Tablet (Pyridium Tablet) (06/30/17 01:00) Medications Given in ED Vital Signs/I&O Capillary Refill : Less Than 3 Seconds Blood Pressure Mean: 118 Progress Note : Progress Note Catheter urine specimen was obtained by nursing staff to help clarify where the bleeding was coming from. The catheter urine specimen was grossly bloody. Due to history of renal stones and patient's significant pain, workup for ureteral stone was felt appropriate. Patient is agreeable. IV was established and blood work assessed. Renal function was at baseline. Urinary tract infection was suspected by urinalysis. CT scan showed no stones in the ureter and no evidence of ureteral obstruction. She still has stones in the kidneys. Bladder wall is thickened which would correlate with cystitis and urinary tract infection. Levsin was administered for bladder spasm which did improve her pain. She was also started on Cipro and Pyridium. Patient has a penicillin allergy which discouraged Rocephin use. Because of recurrent urinary tract infections and hematuria, patient was advised to seek referral to a urologist. See discharge instructions. Prior urine cultures were reviewed before selecting antibiotic. Departure Impression Impression: Primary Impression: Urinary tract infection Qualified Codes: N39.0 - Urinary tract infection, site not specified; R31.9 - Hematuria, unspecified Additional Impressions: Nephrolithiasis Hematuria Qualified Codes: R31.0 - Gross hematuria Pelvic pain Disposition: HOME, SELF-CARE Condition: Improved Departure-Patient Inst. Decision time for Depature: 00:50 Referrals: RAUL LEO DO (PCP/Family) Primary Care Physician Patient Instructions: Blood in the Urine (Hematuria) in Adults, Urinary Tract Infection, Adult (DC) Add. Discharge Instructions: Drink plenty of water and sugar-free clear liquids. Complete your antibiotics as prescribed. Follow-up with your primary care provider on Sunday to review urine culture results. Seek a referral to Dr. Bond (urologist) due to your recurrent bladder infections, kidney stones, and blood in your urine. Asked Dr. Leo to give you a referral. Return to the emergency room if you have worsening symptoms. All discharge instructions reviewed with patient and/or family. Voiced understanding. Scripts Phenazopyridine HCl (Pyridium) 200 Mg Tablet 1 TAB PO TID Y for PAIN-MODERATE TO SEVERE, #10 TAB Prov: RAYNA ALCANTARA MD 06/30/17 Ciprofloxacin HCl (Cipro) 500 Mg Tablet 500 MG PO BID, #14 TAB Prov: RAYNA ALCANTARA MD 06/30/17 Copy Copies To 1: RAUL LEO JOSHUA T MD Jun 30, 2017 01:02
[2017-06-30 01:11] VITALS: BP 165/78
--- NOTE | 2017-06-30 07:10 | Diagnostic Imaging Report ---
PROCEDURE: CT urinary tract, rule out kidney stone. TECHNIQUE: Multiple contiguous axial images were obtained through the abdomen and pelvis without the use of intravenous contrast. INDICATION: Painful urination and increased frequency. Comparison made with prior examination of 12/02/2015. FINDINGS: Heart size is normal. The lung bases are clear. The liver is normal in size without focal lesions. The gallbladder is unremarkable. There is no biliary ductal dilatation. The spleen is normal. The pancreas and adrenal glands are unremarkable. There are bilateral nonobstructing renal calculi. The aorta is nonaneurysmal. The bowel gas pattern is nonspecific. The appendix is normal. There is no free air. There is no ascites. There are no focal inflammatory changes. There is no pelvic mass, adenopathy, or free fluid. There is thickening of the bladder wall. There are mild degenerative changes in the spine. IMPRESSION: Diffuse thickening of the urinary bladder suspect for cystitis. Recommend clinical correlation. Bilateral nonobstructing renal calculi. Dictated by: Dictated on workstation # [id number]
== END 2017-06-30 01:04 | disposition home or self-care (01) ==
LOC: EDUNIT# 23:20 → ER 23:22
DX: N39.0 Urinary tract infection, site not specified (principal); N20.0 Calculus of kidney; R10.2 Pelvic and perineal pain; K21.9 Gastro-esophageal reflux disease without esophagitis; E11.9 Type 2 diabetes mellitus without complications; Z79.4 Long term (current) use of insulin
CPT/HCPCS: 36415; 74176; 80053; 81000; 85025; 87088

== ENCOUNTER → 2020-01-07 | Outpatient (CLI) | payer MEDICARE ==
[2020-01-07 08:33] LABS: BILIRUBIN,URINE NEGATIVE (NEGATIVE); CLARITY,URINE CLEAR; COLOR,URINE YELLOW; GLUCOSE, URINE (UA) 2+ (NEGATIVE); KETONES,URINE NEGATIVE (NEGATIVE); LEUKOCYTE ESTERASE ,URINE NEGATIVE (NEGATIVE); NITRITE,URINE NEGATIVE (NEGATIVE); PROTEIN,URINE 2+ (NEGATIVE)
[2020-01-07 08:43] LABS: BACTERIA,URINE NEGATIVE /HPF; RBC,URINE RARE /HPF; SQUAMOUS EPITHELIAL CELL,UR 0-2 /HPF
[2020-01-07 08:49] LABS: BASOPHILS % (AUTO) 0 % (0-10); EOSINOPHILS # (AUTO) 0.1 10^3/uL (0.0-0.3); EOSINOPHILS % (AUTO) 2 % (0-10); HEMATOCRIT 37 % (35-52); HEMOGLOBIN 12.8 G/DL (11.5-16.0); LYMPHOCYTES # (AUTO) 2.6 X 10^3 (1.0-4.0); LYMPHOCYTES % (AUTO) 36 % (12-44); MEAN CORPUSCULAR HEMOGLOBIN 31 PG (25-34); MEAN CORPUSCULAR HGB CONC 35 G/DL (32-36); MEAN CORPUSCULAR VOLUME 89 FL (80-99); MEAN PLATELET VOLUME 10.5 FL (7.4-10.4); MONOCYTES # (AUTO) 0.6 X 10^3 (0.0-1.0); MONOCYTES % (AUTO) 8 % (0-12); NEUTROPHILS # (AUTO) 3.9 X 10^3 (1.8-7.8); NEUTROPHILS % (AUTO) 54 % (42-75); PLATELET COUNT 294 10^3/uL (130-400); RED CELL DISTRIBUTION WIDTH 13.8 % (10.0-14.5); WHITE BLOOD COUNT 7.3 10^3/uL (4.3-11.0)
[2020-01-07 08:57] LABS: ALBUMIN 4.5 GM/DL (3.2-4.5); POTASSIUM 3.7 MMOL/L (3.6-5.0)
[2020-01-07 08:58] LABS: CALCIUM 9.3 MG/DL (8.5-10.1)
[2020-01-07 09:00] LABS: TOTAL PROTEIN 7.9 GM/DL (6.4-8.2)
[2020-01-07 09:02] LABS: BILIRUBIN,TOTAL 0.2 MG/DL (0.1-1.0)
[2020-01-07 09:03] LABS: CREATININE SERUM 1.7 MG/DL (0.60-1.30)
== END ==
LOC: LAB 08:08
PROVIDERS: ATTEND Family Medicine
DX: E03.9 Hypothyroidism, unspecified (principal); E11.9 Type 2 diabetes mellitus without complications; I10 Essential (primary) hypertension
CPT/HCPCS: 36415; 80053; 80061; 81000; 83036; 84443; 85025

== ENCOUNTER → 2020-01-19 | Outpatient (CLI) | payer MEDICARE ==
[2020-01-19 08:14] LABS: POTASSIUM 3.5 MMOL/L (3.6-5.0)
[2020-01-19 08:15] LABS: CALCIUM 9.9 MG/DL (8.5-10.1)
[2020-01-19 08:20] LABS: CREATININE SERUM 1.77 MG/DL (0.60-1.30)
== END ==
LOC: LAB 07:31
PROVIDERS: ATTEND Family Medicine
DX: E11.9 Type 2 diabetes mellitus without complications (principal); N28.9 Disorder of kidney and ureter, unspecified
CPT/HCPCS: 36415; 80048

== ENCOUNTER → 2020-01-26 | Outpatient (CLI) | payer MEDICARE ==
[2020-01-26 10:39] LABS: ALBUMIN 4.3 GM/DL (3.2-4.5); POTASSIUM 4.2 MMOL/L (3.6-5.0)
[2020-01-26 10:40] LABS: CALCIUM 8.8 MG/DL (8.5-10.1)
[2020-01-26 10:41] LABS: TOTAL PROTEIN 7.8 GM/DL (6.4-8.2)
[2020-01-26 10:43] LABS: BILIRUBIN,TOTAL 0.4 MG/DL (0.1-1.0)
[2020-01-26 10:45] LABS: CREATININE SERUM 1.93 MG/DL (0.60-1.30)
== END ==
LOC: LAB 10:06
PROVIDERS: ATTEND Family Medicine
DX: N28.9 Disorder of kidney and ureter, unspecified (principal)
CPT/HCPCS: 36415; 80053

== ENCOUNTER → 2020-05-04 | Outpatient (CLI) | payer MEDICARE ==
[~2020-05-04] MED LIST changes: -PANT40TA3 PO; +PANT40TA52 PO
--- NOTE | 2020-05-04 09:46 | Diagnostic Imaging Report ---
PROCEDURE: US Renal Bilateral. TECHNIQUE: Multiple real-time grayscale images were obtained over the kidneys in various projections bilaterally. INDICATION: Chronic kidney disease stage IV. Right kidney measures 9.8 x 3.9 x 3.8 cm and left kidney measures 10.3 x 5.0 x 3.9 cm. Cortical thickness and echogenicity is normal. No calculi are seen. There is no hydronephrosis. Urinary bladder is unremarkable. Bilateral ureteral jets were visualized. IMPRESSION: Unremarkable renal ultrasound. Dictated by: Dictated on workstation # [id number]
== END ==
LOC: RAD 09:00
PROVIDERS: ATTEND Internal Medicine Nephrology
DX: E11.22 Type 2 diabetes mellitus with diabetic chronic kidney disease (principal); N18.4 Chronic kidney disease, stage 4 (severe)
CPT/HCPCS: 76770

== ENCOUNTER → 2020-11-03 | Outpatient (CLI) | payer MEDICARE ==
[~2020-11-03] MED LIST changes: -LISI10TA2 PO; +LISI10TA25 PO
--- NOTE | 2020-11-03 13:22 | Diagnostic Imaging Report ---
INDICATION: Routine screening. No prior mammograms are available for comparison. 2-D and 3-D bilateral screening mammography was performed with CAD. Scattered fibroglandular densities are identified bilaterally. There are vascular calcifications in both breasts. There appears to be an intraparenchymal lymph node in the upper outer right breast. No spiculated mass or malignant appearing microcalcifications are seen. Axillae are unremarkable. IMPRESSION: BI-RADS Category 2 No mammographic features suspicious for malignancy are identified. ACR BI-RADS Category 2: Benign findings. Result letter will be mailed to the patient. Note: At least 10% of breast cancer is not imaged by mammography. Dictated by: Dictated on workstation # [id number]
== END ==
LOC: RAD 10:27
PROVIDERS: ATTEND Nurse Practitioner Family
DX: Z12.31 Encounter for screening mammogram for malignant neoplasm of breast (principal); Z76.89 Persons encountering health services in other specified circumstances
CPT/HCPCS: 77063; 77067

== ENCOUNTER → 2021-01-28 | Outpatient (CLI) | payer MEDICARE ==
--- NOTE | 2021-01-28 12:38 | Diagnostic Imaging Report ---
INDICATION: Palpable lump right neck. FINDINGS: The images show oval hypoechoic mass with some echogenic center measuring 1.5 x 1.2 cm. There is thickening of the cortex. IMPRESSION: Probable lymph node within the neck. The cortical mantle is thickened. Would consider a CT scan of the neck for further evaluation. Dictated by: Dictated on workstation # [id number]
== END ==
LOC: RAD 11:15
PROVIDERS: ATTEND Family Medicine
DX: R22.1 Localized swelling, mass and lump, neck (principal)
CPT/HCPCS: 76536

== ENCOUNTER → 2021-02-04 | Outpatient (CLI) | payer MEDICARE ==
--- NOTE | 2021-02-04 17:09 | Diagnostic Imaging Report ---
PROCEDURE: CT neck soft tissue without contrast. TECHNIQUE: Multiple contiguous axial images were obtained through the neck without the use of intravenous contrast. Auto Exposure Controls were utilized during the CT exam to meet ALARA standards for radiation dose reduction. INDICATION: Swollen lymph nodes on the right side of neck. COMPARISON: Ultrasound of the neck from 01/28/2021. FINDINGS: There are no pathologically enlarged lymph nodes within the neck. The sternocleidomastoid muscles are symmetric. Assessment for soft tissue mass in the neck is suboptimal without IV contrast. Airway is widely patent. There is a 1.0 x 1.0 cm hypodense cyst in the lower pole of the left thyroid lobe which has no suspicious features by CT. Visualized portions of the brain show no concerning abnormality. Orbits are unremarkable. Paranasal sinuses and mastoid air cells are clear. The lung apices are clear. IMPRESSION: 1. No cervical lymphadenopathy or soft tissue mass by noncontrast imaging. 2. A 1 cm cystic lesion in the lower pole of the left thyroid has no concerning features by CT. Consideration could be given to a follow-up thyroid ultrasound in 12 months to assess stability. Dictated by: Dictated on workstation # [id number]
== END ==
LOC: RAD 12:45
PROVIDERS: ATTEND Family Medicine
DX: R59.0 Localized enlarged lymph nodes (principal); E04.1 Nontoxic single thyroid nodule
CPT/HCPCS: 70490

== ENCOUNTER → 2021-12-02 | Outpatient (CLI) | payer MEDICARE ==
--- NOTE | 2021-12-02 13:24 | Diagnostic Imaging Report ---
INDICATION: Constipation. TIME OF EXAM: 12:55 PM Single view of the abdomen was obtained. Bowel gas pattern is nonobstructed. There does not appear to be significant stool load present. No pathologic calcifications are seen. No free air is detected. IMPRESSION: No acute feature detected. Dictated by: Dictated on workstation # [id number]
== END ==
LOC: RAD 12:34
PROVIDERS: ATTEND Family Medicine
DX: K59.00 Constipation, unspecified (principal)
CPT/HCPCS: 74018

== ENCOUNTER 2022-01-04 05:40 | Outpatient (CLI) | payer MEDICARE ==
[~2022-01-04] VITALS: Ht 165.1 cm; Wt 75.3 kg
[2022-01-04] MEDS ORDERED: ACET325C7 PO (12:56)
[2022-01-04] MEDS ORDERED: PRAV40TA2 PO (12:56)
[2022-01-04] MEDS ORDERED: GLIM4TAB5 PO (12:56)
[2022-01-04] MEDS ORDERED: INSU100I23 SQ ×3 (12:56)
[2022-01-04] MEDS ORDERED: INSU100I10 SQ (12:56)
[2022-01-04] MEDS ORDERED: CALC0.253 PO (12:56)
[2022-01-04] MEDS ORDERED: DOCU-26 PO (12:56)
[2022-01-04] MEDS ORDERED: LEVO88TA68 PO (12:56)
== END 2022-01-04 15:15 | disposition home or self-care (01) ==
LOC: PREOP 05:40
PROVIDERS: ATTEND Surgery
DX: Z01.818 Encounter for other preprocedural examination (principal)

== ENCOUNTER 2022-01-17 07:33 | Day surgery (SDC) | payer MEDICARE ==
[~2022-01-17] VITALS: Ht 165.1 cm; Wt 75.3 kg
[~2022-01-17 07:33] MED LIST changes: +ACET325C7 PO; +CALC0.253 PO; +DOCU-26 PO; +GLIM4TAB5 PO; +INSU100I10 SQ; +INSU100I23 SQ; +LEVO88TA68 PO; +PRAV40TA2 PO
[2022-01-17] MEDS ORDERED: LACTATED RINGERS 1,000 ML IV STA (07:40)
[2022-01-17] MEDS ORDERED: HURRICAINE EXT TUBE (BENZOCAINE) XX PRN (07:45)
[2022-01-17 07:56] VITALS: BP 165/72
[2022-01-17] MEDS ORDERED: LIDOCAINE PF 2% 5 ML (XYLOCAINE) VIAL ONE (08:04)
[2022-01-17] MEDS ORDERED: PROPOFOL INJECTION 50 ML IV ONE (08:53)
[2022-01-17] MEDS ORDERED: MIDAZOLAM 2 MG/2 ML (VERSED) VIAL ONE (08:53)
--- NOTE | 2022-01-17 09:45 | Anesthesia-General Post-Op ---
MAC Patient Condition Mental Status/LOC: Same as Preop Cardiovascular: Satisfactory Nausea/Vomiting: Absent Respiratory: Satisfactory Pain: Controlled Complications: Absent Post Op Complications Complications None Follow Up Care/Instructions Patient Instructions None needed. Anesthesiology Discharge Order Discharge Order Patient is doing well, no complaints, stable vital signs, no apparent adverse anesthesia problems. No complications reported per nursing. CECI BROWN CRNA Jan 17, 2022 09:45
--- NOTE | 2022-01-17 09:45 | Progress Note-Post Operative ---
Post-Operative Progess Note Surgeon (s)/Industry Segment Specialist (s) Surgeon HECTOR VARGAS DO Industry Segment Specialist: na Pre-Operative Diagnosis GERD Change in bowel habits Post-Operative Diagnosis duodenal ulcer, antral mucosal change, normal colon Procedure & Operative Findings Date of Procedure 01/17/22 Procedure Performed/Findings egd c biopsies, colonoscopy Anesthesia Type per system controller Estimated Blood Loss Estimated blood loss (mL): none Specimens/Packing Specimens Removed duodenum, antrum, ge HECTOR VARGAS DO Jan 17, 2022 09:45
[2022-01-17] MEDS ORDERED: PANT40TA2 PO (09:46)
--- NOTE | 2022-01-17 09:46 | Discharge Inst-Simple/Standard ---
Discharge Inst-Standard Discharge Medications New, Converted or Re-Newed RX: Transmitted to Pharmacy Patient Instructions/Follow Up Plan of Care/Instructions/FU: 2 weeks ana Activity as Tolerated: Yes Discharge Diet: Regular Diet HECTOR VARGAS DO Jan 17, 2022 09:46
[2022-01-17 09:49] VITALS: BP 191/85
[2022-01-17 09:54] VITALS: BP 181/84
[2022-01-17 10:10] VITALS: BP 172/78
[2022-01-17 10:29] VITALS: BP 172/78
--- NOTE | 2022-01-17 14:45 | OPERATIVE REPORT ---
DATE OF SERVICE: 01/17/2022 PREOPERATIVE DIAGNOSES: Change in bowel habits and gastroesophageal reflux disease. POSTOPERATIVE DIAGNOSES: Duodenal ulcer, mucosal change of the antrum, and normal colon. PROCEDURES PERFORMED: EGD with biopsies and colonoscopy. SURGEON: Hector Haas DO. ANESTHESIA: Per PSYCHOLOGIST DEVELOPMENTAL. ESTIMATED BLOOD LOSS: None. COMPLICATIONS: None. INDICATIONS FOR PROCEDURE: The patient is a 71-year-old female needing EGD and colonoscopy. She understands risks and benefits of the procedures and wishes to proceed. Consent was signed in the chart. DESCRIPTION OF PROCEDURE: The patient was taken to the endoscopy suite and placed in the left lateral recumbent position. Timeout was performed. Scope was inserted in mouth, down the esophagus, stomach and into the duodenum without difficulty. Second portion of the duodenum had appearance of an ulcer. Biopsy was obtained. Scope was then continuously and slowly retracted back. No polyps, masses or ulcerations in the remainder of the duodenum. Scope was pulled back within the antrum of the stomach, where it was further insufflated. A mucosal change of the antrum was present. Biopsies were obtained. Scope was retroflexed noting no other pathology. Scope was returned to its normal position, slowly withdrawn to distal esophagus. Biopsy of the GE junction was obtained. No polyps, masses or ulcerations. Scope was slowly retracted back until completely removed. Digital rectal exam was performed. No palpable polyps, masses or ulcerations. Scope was inserted in the rectum and advanced all the way to cecum with minimal difficulty. Prep was adequate. Scope was slowly retracted back. No polyps, masses or ulcerations in the cecum, ascending, transverse, descending and sigmoid colon. Once in the rectum, scope was inserted and retracted multiple times, noting no other pathology. Attempted to be retroflexed, but too narrow and was unable to. The patient tolerated the procedure well without any complications. She was taken to recovery room in stable condition. RECOMMENDATIONS: The patient will be started on Protonix 40 mg daily. We will await biopsy results. She does not need a repeat colonoscopy unless she has a change in condition due to age. Job ID: [id number] DocumentID: [id number] Dictated Date: 01/17/2022 09:49:15 Bank Boss Date: 01/17/2022 14:44:19 Dictated By: HECTOR HAAS DO
== END 2022-01-17 10:35 | disposition home or self-care (01) ==
LOC: ENDO 07:33
PROVIDERS: ATTEND Surgery
DX: K21.00 Gastro-esophageal reflux disease with esophagitis, without bleeding (principal); K29.50 Unspecified chronic gastritis without bleeding; K29.80 Duodenitis without bleeding; R19.4 Change in bowel habit
CPT/HCPCS: 88305